=== PATIENT | female | born 1960 | race Caucasian/White ===

== ENCOUNTER 2016-12-27 11:34 | Emergency (ER) | payer MEDICARE ==
[~2016-12-27] VITALS: Ht 30.5 cm; Wt 68.0 kg
--- NOTE | 2016-12-27 12:14 | PHYS DOC ---
Past Medical History Past Medical History: Angina, Anxiety, Asthma, COPD, Depression, Diabetes-Type II, High Cholesterol, Hypertension Past Surgical History: Cholecystectomy, Hysterectomy, Other Additional Past Surgical Histo: carpal tunnel Alcohol Use: Occasionally Drug Use: None Adult General Chief Complaint Chief Complaint: MECHANICAL FALL HPI HPI Patient is a 56 year old F who presents with fall and head pain. Patient states she was walking out of the garage in the kitchen and fell backwards hitting her head. Patient complains of head, neck, back pain. Patient states she doesn't know what happened and doesn't know if she lost consciousness or not. Family is at bedside and states she's been falling more frequently. Patient states she has chronic right hip pain. Patient states she suffers depression. Patient denies any fevers. Patient denies any chest pain or shortness of breath. Patient denies any abdominal pain. Patient refused c- collar. Review of Systems Review of Systems GEN: Denies fevers, chills, sweats HEENT: Neck pain CV: Denies chest pain RESP: Denies shortness of air, cough GI: Denies n/v/d NEURO: Headache MSK: Denies weakness, joint pain/swelling BAck: Back pain Current Medications Current Medications Current Medications Medications (Trade) Dose Ordered Sig/Andria Start Time Stop Time Status Last Admin Dose Admin Fentanyl Citrate (Fentanyl 2ml Vial) 50 mcg 1X ONCE 12/27/16 12:30 12/27/16 12:31 DC 12/27/16 12:33 50 MCG Allergies Allergies Allergies Coded Allergies Type Severity Reaction Last Updated Verified Penicillins Allergy Intermediate hives 07/12/13 Yes Beef Containing Products Allergy Hives 07/12/13 Yes Uncoded Allergies Type Severity Reaction Last Updated Verified OATS Allergy Intermediate hives 07/12/13 Physical Exam Physical Exam GEN.: No apparent distress. Alert and oriented. HEENT: Head is normocephalic, atraumatic NECK: Supple. Positive tenderness palpation midline however the patient refuses c-collar LUNGS: CTAB. HEART: RRR, S1, S2 present. Peripheral pulses intact ABDOMEN: Soft, nontender. Positive bowel sounds. EXTREMITIES: Without any cyanosis. Positive tenderness palpation to the right hip NEUROLOGIC: Normal speech, normal tone PSYCHIATRIC: Normal affect, normal mood. SKIN: No ulcerations BACK: Positive tenderness palpation midline over the T and L-spine Current Patient Data Vital Signs Vital Signs Date Time Temp Pulse Resp B/P (MAP) Pulse Ox O2 Delivery O2 Flow Rate FiO2 12/27/16 12:30 76 20 115/56 (75) 97 12/27/16 11:38 98.1 Room Air 98.1 Lab Values Laboratory Tests Test 12/27/16 11:55 12/27/16 12:20 White Blood Count 7.0 x10^3/uL (4.0-11.0) Red Blood Count 4.43 x10^6/uL (3.50-5.40) Hemoglobin 12.9 g/dL (12.0-15.5) Hematocrit 38.7 % (36.0-47.0) Mean Corpuscular Volume 87 fL (79-100) Mean Corpuscular Hemoglobin 29 pg (25-35) Mean Corpuscular Hemoglobin Concent 33 g/dL (31-37) Red Cell Distribution Width 13.4 % (11.5-14.5) Platelet Count 195 x10^3/uL (140-400) Neutrophils (%) (Auto) 67 % (31-73) Lymphocytes (%) (Auto) 26 % (24-48) Monocytes (%) (Auto) 5 % (0-9) Eosinophils (%) (Auto) 2 % (0-3) Basophils (%) (Auto) 1 % (0-3) Neutrophils # (Auto) 4.7 x10^3uL (1.8-7.7) Lymphocytes # (Auto) 1.8 x10^3/uL (1.0-4.8) Monocytes # (Auto) 0.4 x10^3/uL (0.0-1.1) Eosinophils # (Auto) 0.1 x10^3/uL (0.0-0.7) Basophils # (Auto) 0.0 x10^3/uL (0.0-0.2) Sodium Level 140 mmol/L (136-145) Potassium Level 4.1 mmol/L (3.5-5.1) Chloride Level 104 mmol/L (98-107) Carbon Dioxide Level 27 mmol/L (21-32) Anion Gap 9 (6-14) Blood Urea Nitrogen 17 mg/dL (7-20) Creatinine 0.6 mg/dL (0.6-1.0) Estimated GFR (Cockcroft-Gault) 103.4 Glucose Level 106 mg/dL (70-99) H Calcium Level 8.8 mg/dL (8.5-10.1) Urine Collection Type Unknown Urine Color Yellow Urine Clarity Clear Urine pH 6.0 Urine Specific [place] 1.015 Urine Protein Negative mg/dL (NEG-TRACE) Urine Glucose (UA) Negative mg/dL (NEG) Urine Ketones (Stick) Negative mg/dL (NEG) Urine Blood Negative (NEG) Urine Nitrite Negative (NEG) Urine Bilirubin Negative (NEG) Urine Urobilinogen Dipstick 0.2 mg/dL (0.2 mg/dL) Urine Leukocyte Esterase Negative (NEG) Urine RBC 0 /HPF (0-2) Urine WBC 0 /HPF (0-4) Urine Bacteria 0 /HPF (0-FEW) Laboratory Tests 12/27/16 11:55 Laboratory Tests 12/27/16 11:55 EKG EKG [] Radiology/Procedures Radiology/Procedures CT scan of the head/C-spine/T-spine/L-spine/pelvis were negative for any acute fracture[] Course & Med Decision Making Course & Med Decision Making Pertinent Labs and Imaging studies reviewed. (See chart for details) ED course: Patient was seen and examined emergency room CBC, BMP, UA, EKG, CT scan of the head, C-spine, T-spine, L-spine, right hip were ordered 1404: Reevaluated the patient is feeling much better and is ready go home. Updated the patient on CT findings and need to follow-up with her PCP for pain management MDM: After reviewing the chart, CC/HPI/PMH, physical exam, [lab results], [ radiological results], I do not believe the patient has emergent medical condition or an acute traumatic injury warranting further workup and/or admission at this time. On reexamination the patient has improved and is ready go home. Discussed need to follow-up with PCP for further evaluation and management of her pain. Additional verbal discharge instructions were provided to the patient and that if symptoms get worse or any new symptoms arise that are worrisome to the patient she is to return to the emergency room immediately [] Dragon Disclaimer Dragon Disclaimer This electronic medical record was generated, in whole or in part, using a voice recognition dictation system. Departure Departure Impression: Primary Impression: Closed head injury Additional Impressions: Neck sprain Thoracic spine pain Lower back pain Right hip pain Disposition: 01 HOME, SELF-CARE Condition: IMPROVED Referrals: UNKNOWN PCP NAME (PCP) Patient Instructions: Fall Prevention and Home Safety Additional Instructions: Please follow up with your family physician in the next one to 2 days for pain management and further evaluation and return if symptoms increase Problem Qualifiers WILBERTO NAVARRO DO Dec 27, 2016 12:14
[2016-12-27 12:30] VITALS: BP 115/56
[2016-12-27] MEDS ORDERED: fentaNYL PF VIAL 100 MCG/2 ML VIAL IV ONE (12:30)
[2016-12-27 12:33] LABS: BILIRUBIN,URINE NEGATIVE (NEG); GLUCOSE,URINE NEGATIVE (NEG); NITRITE,URINE NEGATIVE (NEG); PROTEIN,URINE NEGATIVE (NEG-TRACE); UROBILINOGEN,URINE 0.2 mg/dL (0.2 mg/dL)
[2016-12-27 12:37] LABS: BASO % 1 % (0-3); EOS % 2 % (0-3); HEMATOCRIT 38.7 % (36.0-47.0); HEMOGLOBIN 12.9 g/dL (12.0-15.5); LYMPH # 1.8 x10^3/uL (1.0-4.8); LYMPH % 26 % (24-48); MEAN CORPUSCULAR HEMOGLOBIN 29 pg (25-35); MEAN CORPUSCULAR HGB CONC 33 g/dL (31-37); MEAN CORPUSCULAR VOLUME 87 fL (79-100); MONO % 5 % (0-9); NEUT % 67 % (31-73); PLATELET COUNT 195 x10^3/uL (140-400); RED BLOOD COUNT 4.43 x10^6/uL (3.50-5.40); RED CELL DISTRIBUTION WIDTH 13.4 % (11.5-14.5)
[2016-12-27 12:38] LABS: CALCIUM 8.8 mg/dL (8.5-10.1); CREATININE 0.6 mg/dL (0.6-1.0); GFR 103.4; POTASSIUM 4.1 mmol/L (3.5-5.1)
[2016-12-27 12:44] LABS: BACTERIA,URINE 0 /HPF (0-FEW); RBC,URINE 0 /HPF (0-2); WBC,URINE 0 /HPF (0-4)
--- NOTE | 2016-12-27 13:20 | EKG ---
[facility] [address] [place] [address] Test Date: 2016-12-27 Test Time: 12:24:18 Pat Name: LATIA JESSICA Department: Room: Gender: F Emergency Medicine Specialist: : [id number] Requested By: WILBERTO NAVARRO Order Number: [id number] Reading MD: Edilma Chan Measurements Intervals [place] Rate: 63 P: 29 CO: 128 QRS: 55 QRSD: 90 T: 42 QT: 434 QTc: 447 Interpretive Statements SINUS RHYTHM NORMAL ECG Electronically Signed On 12-31-2016 21:43:44 CDT by Edilma Chan
--- NOTE | 2016-12-27 13:40 | RAD ---
Examination: CT head and cervical spine. History: History of fall, headache pain, neck pain, back pain Comparison: None available CT head without contrast Procedure: Axial images are obtained of the head from the skull base through the vertex without IV contrast. Findings: The ventricles and sulci are normal for the patient's age. No mass-effect, intracranial mass, midline shift, hemorrhage or obvious acute infarction is identified. Basilar cisterns are patent. Bone windows demonstrate no significant calvarial abnormality. The visualized paranasal sinuses appear clear. Impression: 1. No acute intracranial process. PQRS Compliance Statement: One or more of the following individualized dose reduction techniques were utilized for this examination: 1. Automated exposure control 2. Adjustment of the mA and/or kV according to patient size 3. Use of iterative reconstruction technique CT cervical spine without contrast Technique: Noncontrast helical CT of the cervical spine was performed , sagittal, and coronal reconstructions were obtained. Findings: Alignment of the cervical spine appears anatomic. There is no evidence of acute fracture or acute malalignment. No prevertebral soft tissue swelling is identified. Mild intervertebral disc height loss identified at C3-C4, C5-C6 vertebral levels. The bilateral facets are well aligned. Visualized soft tissues of the neck demonstrate no significant abnormalities. Impression: 1. No acute fracture of the cervical spine. Correlate clinically.
--- NOTE | 2016-12-27 13:53 | RAD ---
Examination: CT thoracic and lumbar spine and the pelvis without contrast History: History of fall, pain Comparison: None available Technique: Axial CT images of the thoracic, lumbar spine and pelvis were performed without contrast. Coronal and sagittal reformats are performed. PQRS Compliance Statement: One or more of the following individualized dose reduction techniques were utilized for this examination: 1. Automated exposure control 2. Adjustment of the mA and/or kV according to patient size 3. Use of iterative reconstruction technique Findings: The vertebral body heights are maintained. No evidence of listhesis. Mild multilevel degenerative changes identified in the thoracolumbar spine. There is no obvious acute fracture visualized. The bilateral femoral heads are within the acetabula. Small 1.2 cm nodule identified in the left adrenal gland measuring fat density likely lipid rich adrenal adenoma. Mild degenerative changes identified in the bilateral hip joints Impression: No acute osseous findings.
== END 2016-12-27 14:05 | disposition home or self-care (01) ==
LOC: ER 11:34
DX: S13.9XXA Sprain of joints and ligaments of unspecified parts of neck, initial encounter (principal); S09.90XA Unspecified injury of head, initial encounter; M54.5 Low back pain; M54.6 Pain in thoracic spine; M25.551 Pain in right hip; E11.9 Type 2 diabetes mellitus without complications; E78.00 Pure hypercholesterolemia, unspecified; J44.9 Chronic obstructive pulmonary disease, unspecified; I10 Essential (primary) hypertension; Z90.49 Acquired absence of other specified parts of digestive tract; Z90.710 Acquired absence of both cervix and uterus; Z88.0 Allergy status to penicillin; Z91.018 Allergy to other foods; W18.09XA Striking against other object with subsequent fall, initial encounter; Y93.01 Activity, walking, marching and hiking; Y99.8 Other external cause status; Y92.090 Kitchen in other non-institutional residence as the place of occurrence of the external cause
CPT/HCPCS: 36415; 70450; 72125; 72128; 72131; 72192; 80048; 81001; 85025; 93005; 96374; 99285; J3010

== ENCOUNTER → 2017-02-04 | Outpatient (CLI) | payer MEDICARE ==
--- NOTE | 2017-02-04 09:21 | RAD ---
Indication mediastinal adenopathy. Noncontrast images through the chest were obtained. The examination is slightly limited. The examination evaluating for adenopathy is slightly limited in that no IV contrast was administered. No prior imaging of the chest is available. Mild enlargement of the left adrenal gland is noted. Hounsfield unit numbers are negative indicative of a benign adenoma. An acute or definite significant finding in the upper abdomen is not seen. The thoracic aorta appears grossly normal. There is some mild mediastinal adenopathy. There are calcified right hilar lymph nodes. Definite pathologic mediastinal or hilar adenopathy is not seen. There are occasional calcified granulomas in both lungs. Acute parenchymal infiltrate in either lung is not seen and there is no dominant soft tissue mass. IMPRESSION:: No acute finding seen in the chest. No definite pathologic hilar or mediastinal adenopathy. PQRS Compliance Statement: One or more of the following individualized dose reduction techniques were utilized for this examination: 1. Automated exposure control 2. Adjustment of the mA and/or kV according to patient size 3. Use of iterative reconstruction technique
== END | disposition home or self-care (01) ==
LOC: CT 08:23
PROVIDERS: ATTEND Internal Medicine Pulmonary Disease
DX: R59.0 Localized enlarged lymph nodes (principal)
CPT/HCPCS: 71250

== ENCOUNTER → 2018-02-09 | Outpatient (CLI) | payer MEDICARE ==
--- NOTE | 2018-02-09 15:28 | RAD ---
Examination: CT chest without contrast HISTORY: History of smoking, cough COMPARISON: 02/04/2017 TECHNIQUE: Axial CT images of the chest were performed without contrast. Coronal and sagittal reformats are performed Exposure: One or more of the following individualized dose reduction techniques were utilized for this examination: 1. Automated exposure control 2. Adjustment of the mA and/or kV according to patient size 3. Use of iterative reconstruction technique FINDINGS: The visualized thyroid gland grossly appears unremarkable. The central airways are patent. The heart size grossly appears unremarkable. Few calcified mediastinal lymph nodes identified. Few calcified right hilar lymph nodes identified. There is a 6 mm nodule identified in the left lower lobe of the lung best visualized on series 2 image 28. Few scattered bilateral lung granulomas identified. No evidence of pleural effusion or pneumothorax. Minimal bibasilar lung atelectasis. The visualized noncontrasted liver, spleen, right adrenal grossly appears unremarkable. There is a nodule identified left adrenal gland measuring 1.2 cm and measuring -1 Hounsfield units likely lipid rich adrenal adenoma similar to prior exam. Cholecystectomy changes identified. Mild degenerative changes thoracic spine. IMPRESSION: 1. 6 mm nodule identified in the left lower lobe of the lung. Follow-up CT is recommended in 6-12 months per Fleischner Society guidelines. 2. Unchanged left adrenal lipid rich adenoma. Electronically signed by: Martinez Johnson MD (02/09/2018 3:25 PM) [id number]
== END | disposition home or self-care (01) ==
LOC: CT 13:57
PROVIDERS: ATTEND Internal Medicine Pulmonary Disease
DX: J98.11 Atelectasis (principal); E34.8 Other specified endocrine disorders; F17.200 Nicotine dependence, unspecified, uncomplicated; J84.10 Pulmonary fibrosis, unspecified; R91.1 Solitary pulmonary nodule; Z90.49 Acquired absence of other specified parts of digestive tract
CPT/HCPCS: 71250

== ENCOUNTER 2018-08-08 17:07 | Emergency (ER) | payer MEDICARE ==
[~2018-08-08] VITALS: Ht 154.9 cm; Wt 72.6 kg
[2018-08-08 17:35] VITALS: BP 121/99
[2018-08-08] MEDS ORDERED: methylPREDNISolone SOD SUCC PF 125 MG/2 ML VIAL. IV ONE (18:00)
[2018-08-08] MEDS ORDERED: IPRATRPIUM/ALBUTEROL 0.5/2.5MG 3 ML NEBU. NEB ONE (18:00)
[2018-08-08 18:11] LABS: BASO # 0.1 x10^3/uL (0.0-0.2); BASO % 1 % (0-3); EOS # 0.2 x10^3/uL (0.0-0.7); EOS % 2 % (0-3); HEMATOCRIT 38.9 % (36.0-47.0); HEMOGLOBIN 12.9 g/dL (12.0-15.5); LYMPH # 2.4 x10^3/uL (1.0-4.8); LYMPH % 28 % (24-48); MEAN CORPUSCULAR HEMOGLOBIN 29 pg (25-35); MEAN CORPUSCULAR HGB CONC 33 g/dL (31-37); MEAN CORPUSCULAR VOLUME 88 fL (79-100); MONO # 0.5 x10^3/uL (0.0-1.1); MONO % 5 % (0-9); NEUT # 5.5 x10^3uL (1.8-7.7); NEUT % 63 % (31-73); PLATELET COUNT 223 x10^3/uL (140-400); RED BLOOD COUNT 4.43 x10^6/uL (3.50-5.40); RED CELL DISTRIBUTION WIDTH 13.2 % (11.5-14.5); WHITE BLOOD COUNT 8.7 x10^3/uL (4.0-11.0)
--- NOTE | 2018-08-08 18:19 | RAD ---
CT head without contrast: Reason for examination: Headache since Tuesday. Comparison is made to previous study dated 12/27/2016. Axial images were obtained through the brain. No contrast was administered. Exposure: One or more of the following individualized dose reduction techniques were utilized for this examination: 1. Automated exposure control 2. Adjustment of the mA and/or kV according to patient size 3. Use of iterative reconstruction technique. Ventricular systems are symmetric and not dilated. No midline shift is seen. There is no evidence of intracranial hemorrhage, infarct, mass or edema. No abnormalities are seen at the orbits. The paranasal sinuses and mastoid air cells are clear. No acute skull abnormality is seen. IMPRESSION: No acute intracranial abnormality evident. Chest AP portable at 1743: Reason for examination: Cough. The heart size is normal. Mediastinum is unremarkable. There is a small calcified granuloma at the mid right lung field. No congestion, infiltrates or pleural effusions are seen. No acute bony abnormalities are seen. IMPRESSION: No acute cardiopulmonary disease. Electronically signed by: Berenice Salas MD (08/08/2018 6:17 PM) [facility]
--- NOTE | 2018-08-08 18:24 | PHYS DOC ---
Past Medical History Past Medical History: Angina, Anxiety, Asthma, COPD, Depression, Diabetes-Type II, High Cholesterol, Hypertension Past Surgical History: Cholecystectomy, Hysterectomy, Other Additional Past Surgical Histo: carpal tunnel Alcohol Use: Occasionally Drug Use: None Adult General Chief Complaint Chief Complaint: HEADACHE HPI HPI Patient is a 57 year old female with a history of COPD presents to the ED complaining of cough 3 days. States that she's been having a dry cough. Patient is a smoker. Associated symptoms include headache, congestion and subjective fevers. Sick contacts with similar symptoms. Denies worst headache of life, chest pain, shortness of breath, lower leg swelling, calf pain, abdominal pain, nausea/vomiting, dizziness, vision changes, rash. Review of Systems Review of Systems Constitutional: Complains of subjective fever. Denies chills [] Eyes: Denies change in visual acuity, redness, or eye pain [] HENT: Complains of congestion and sore throat [] Respiratory: Complains of cough. Denies shortness of breath [] Cardiovascular: No additional information not addressed in HPI [] GI: Denies abdominal pain, nausea, vomiting, bloody stools or diarrhea [] : Denies dysuria or hematuria [] Musculoskeletal: Denies back pain or joint pain [] Integument: Denies rash or skin lesions [] Neurologic: Denies headache, focal weakness or sensory changes [] All other systems were reviewed and found to be within normal limits, except as documented in this note. Current Medications Current Medications Current Medications Medications (Trade) Dose Ordered Sig/Andria Start Time Stop Time Status Last Admin Dose Admin Albuterol/ Ipratropium (Duoneb) 3 ml 1X ONCE 08/08/18 18:00 08/08/18 18:01 DC 08/08/18 18:29 3 ML Fentanyl Citrate (Fentanyl 2ml Vial) 50 mcg 1X ONCE 08/08/18 18:45 08/08/18 18:46 DC 08/08/18 18:46 50 MCG Methylprednisolone Sodium Succinate (SOLU-Medrol 125MG VIAL) 125 mg 1X ONCE 08/08/18 18:00 08/08/18 18:01 DC 08/08/18 18:44 125 MG Ondansetron HCl (Zofran) 4 mg 1X ONCE 08/08/18 18:45 08/08/18 18:46 DC 08/08/18 18:45 4 MG Allergies Allergies Allergies Coded Allergies Type Severity Reaction Last Updated Verified Penicillins Allergy Intermediate hives 07/12/13 Yes erythromycin base Allergy Intermediate rash 08/08/18 Yes gabapentin Allergy Intermediate rash 08/08/18 Yes tetracycline Allergy Intermediate rash 08/08/18 Yes vancomycin Allergy Intermediate rash 08/08/18 Yes Beef Containing Products Allergy Unknown Hives 01/27/17 Yes Uncoded Allergies Type Severity Reaction Last Updated Verified OATS Allergy Intermediate hives 07/12/13 Physical Exam Physical Exam Constitutional: Well developed, well nourished, no acute distress, non-toxic appearance. [] HENT: Normocephalic, atraumatic, bilateral external ears normal, oropharynx moist, no oral exudates, nose normal. [] Eyes: PERRLA, EOMI, conjunctiva normal, no discharge. [] Neck: Normal range of motion, no tenderness, supple, no stridor. [] Cardiovascular:Heart rate regular rhythm, no murmur [] Lungs & Thorax: mild wheezing bilaterally. Dry cough. [] Abdomen: Bowel sounds normal, soft, no tenderness, no masses, no pulsatile masses. [] Skin: Warm, dry, no erythema, no rash. [] Back: No tenderness, no CVA tenderness. [] Extremities: No tenderness, no cyanosis, no clubbing, ROM intact, no edema. [] Neurologic: Alert and oriented X 3, normal motor function, normal sensory function, no focal deficits noted. [] Psychologic: Affect normal, judgement normal, mood normal. [] Current Patient Data Vital Signs Vital Signs Date Time Temp Pulse Resp B/P (MAP) Pulse Ox O2 Delivery O2 Flow Rate FiO2 08/08/18 18:46 18 94 Room Air 08/08/18 17:35 98.7 83 121/99 (106) 98.7 Lab Values Laboratory Tests Test 08/08/18 18:00 08/08/18 18:45 White Blood Count 8.7 x10^3/uL (4.0-11.0) Red Blood Count 4.43 x10^6/uL (3.50-5.40) Hemoglobin 12.9 g/dL (12.0-15.5) Hematocrit 38.9 % (36.0-47.0) Mean Corpuscular Volume 88 fL (79-100) Mean Corpuscular Hemoglobin 29 pg (25-35) Mean Corpuscular Hemoglobin Concent 33 g/dL (31-37) Red Cell Distribution Width 13.2 % (11.5-14.5) Platelet Count 223 x10^3/uL (140-400) Neutrophils (%) (Auto) 63 % (31-73) Lymphocytes (%) (Auto) 28 % (24-48) Monocytes (%) (Auto) 5 % (0-9) Eosinophils (%) (Auto) 2 % (0-3) Basophils (%) (Auto) 1 % (0-3) Neutrophils # (Auto) 5.5 x10^3uL (1.8-7.7) Lymphocytes # (Auto) 2.4 x10^3/uL (1.0-4.8) Monocytes # (Auto) 0.5 x10^3/uL (0.0-1.1) Eosinophils # (Auto) 0.2 x10^3/uL (0.0-0.7) Basophils # (Auto) 0.1 x10^3/uL (0.0-0.2) Sodium Level 139 mmol/L (136-145) Potassium Level 3.9 mmol/L (3.5-5.1) Chloride Level 104 mmol/L (98-107) Carbon Dioxide Level 27 mmol/L (21-32) Anion Gap 8 (6-14) Blood Urea Nitrogen 17 mg/dL (7-20) Creatinine 0.7 mg/dL (0.6-1.0) Estimated GFR (Cockcroft-Gault) 86.2 BUN/Creatinine Ratio 24 (6-20) H Glucose Level 100 mg/dL (70-99) H Calcium Level 9.0 mg/dL (8.5-10.1) Total Bilirubin 0.2 mg/dL (0.2-1.0) Aspartate Amino Transferase (AST) 14 U/L (15-37) L Alanine Aminotransferase (ALT) 27 U/L (14-59) Alkaline Phosphatase 89 U/L (46-116) Total Protein 6.9 g/dL (6.4-8.2) Albumin 3.5 g/dL (3.4-5.0) Albumin/Globulin Ratio 1.0 (1.0-1.7) Laboratory Tests 08/08/18 18:00 Laboratory Tests 08/08/18 18:45 EKG EKG [] Radiology/Procedures Radiology/Procedures [] Course & Med Decision Making Course & Med Decision Making Pertinent Labs and Imaging studies reviewed. (See chart for details) []Discussed lab and imaging findings with patient. Patient's headache improved in the ED. States she is feeling much better. No focal neuro deficits. Patient on re-examination is not tachypneic, tachycardic or complaining of any symptoms. Discussed symptomatic treatment, [id number] medications and hydration. Discussed follow-up with PCP this week. Provided contact information/ education. Discussed reasons to return to the ED. Patient understands and agrees with plan. Dragon Disclaimer Dragon Disclaimer This electronic medical record was generated, in whole or in part, using a voice recognition dictation system. Departure Departure Impression: Primary Impression: Acute bronchitis Additional Impression: Headache Disposition: 01 HOME, SELF-CARE Condition: IMPROVED Referrals: UNKNOWN PCP NAME (PCP) PRIMITIVO ARCHER MD Patient Instructions: Acute Bronchitis, Headache, FAQs Scripts Guaifenesin/Codeine Phosphate (CHERATUSSIN AC SYRUP) 118 Ml Liquid 5 ML PO PRN Q6HRS, #120 ML Prov: YOON MON 08/08/18 Problem Qualifiers YOON MON Aug 08, 2018 18:24
[2018-08-08] MEDS ORDERED: ONDANSETRON PF 4 MG/2 ML VIAL. IV ONE (18:45)
[2018-08-08] MEDS ORDERED: fentaNYL PF VIAL 100 MCG/2 ML VIAL IV ONE (18:45)
[2018-08-08 19:01] LABS: CREATININE 0.7 mg/dL (0.6-1.0); GFR 86.2; POTASSIUM 3.9 mmol/L (3.5-5.1)
[2018-08-08 19:11] LABS: ALBUMIN 3.5 g/dL (3.4-5.0); TOTAL BILIRUBIN 0.2 mg/dL (0.2-1.0); TOTAL PROTEIN 6.9 g/dL (6.4-8.2)
[2018-08-08] MEDS ORDERED: GUAI118L20 PO (19:42)
== END 2018-08-08 19:55 | disposition home or self-care (01) ==
LOC: ER 17:07
DX: J20.9 Acute bronchitis, unspecified (principal); R51 Headache; F41.9 Anxiety disorder, unspecified; I10 Essential (primary) hypertension; J44.9 Chronic obstructive pulmonary disease, unspecified; F32.9 Major depressive disorder, single episode, unspecified; E11.9 Type 2 diabetes mellitus without complications; E78.00 Pure hypercholesterolemia, unspecified; Z90.49 Acquired absence of other specified parts of digestive tract; Z90.710 Acquired absence of both cervix and uterus; Z88.0 Allergy status to penicillin; Z88.1 Allergy status to other antibiotic agents; Z91.018 Allergy to other foods; Z88.8 Allergy status to other drugs, medicaments and biological substances
CPT/HCPCS: 36415; 70450; 71045; 80053; 85025; 94640; 96374; 96375; 99285; J2405; J2930; J3010; J7620

== ENCOUNTER → 2018-08-28 | Outpatient (CLI) | payer MEDICARE ==
[2018-08-08 17:35] VITALS: BP 121/99
[~2018-08-28] MED LIST: BUTA1CAP31 PO; GUAI118L20 PO
--- NOTE | 2018-08-28 12:40 | RAD ---
CT of the chest without contrast, 08/28/2018: HISTORY: Follow-up nodule Noncontrast scans were obtained as requested and compared to a study from 02/09/2018. There is calcific plaquing of the thoracic aorta without evidence of aneurysm. There are calcified mediastinal and right hilar lymph nodes compatible with old granulomatous disease. No noncalcified mediastinal adenopathy is evident. There is no evidence of pleural fluid. There are calcified granulomata in the lungs. No pulmonary mass or significant nodularity is evident. There is fissural thickening on the right, likely due to scarring. There are minimal nonspecific groundglass opacities in the lungs. There is mild mosaic attenuation in the lung bases bilaterally. Mild scattered degenerative changes are present in the spine. IMPRESSION: 1. Old healed granulomatous disease in the chest. 2. Mild pleural-parenchymal scarring. 3. Mild mosaic attenuation the lung bases which can be due to a variety of causes including small airway disease, emphysema with air trapping or chronic pulmonary embolic disease. PQRS Compliance Statement: One or more of the following individualized dose reduction techniques were utilized for this examination: 1. Automated exposure control 2. Adjustment of the mA and/or kV according to patient size 3. Use of iterative reconstruction technique Electronically signed by: Gerber Sullivan MD (08/28/2018 12:37 PM) [facility]
== END | disposition home or self-care (01) ==
LOC: CT 09:53
PROVIDERS: ATTEND Internal Medicine Pulmonary Disease
DX: R91.8 Other nonspecific abnormal finding of lung field (principal); J98.4 Other disorders of lung; J98.59 Other diseases of mediastinum, not elsewhere classified
CPT/HCPCS: 71250

== ENCOUNTER 2018-09-02 15:42 | Emergency (ER) | payer MEDICARE ==
[~2018-09-02] VITALS: Ht 154.9 cm; Wt 71.7 kg
[~2018-09-02 15:42] MED LIST changes: -BUTA1CAP31 PO
[2018-09-02 16:24] LABS: BILIRUBIN,URINE NEGATIVE (NEG); CLARITY,URINE CLEAR; COLOR,URINE YELLOW; NITRITE,URINE NEGATIVE (NEG); PROTEIN,URINE NEGATIVE (NEG-TRACE); UROBILINOGEN,URINE 0.2 mg/dL (0.2 mg/dL)
[2018-09-02 16:28] LABS: BASO # 0.1 x10^3/uL (0.0-0.2); BASO % 1 % (0-3); EOS # 0.2 x10^3/uL (0.0-0.7); EOS % 3 % (0-3); HEMATOCRIT 40.3 % (36.0-47.0); HEMOGLOBIN 13.4 g/dL (12.0-15.5); LYMPH % 29 % (24-48); MEAN CORPUSCULAR HEMOGLOBIN 29 pg (25-35); MEAN CORPUSCULAR HGB CONC 33 g/dL (31-37); MEAN CORPUSCULAR VOLUME 88 fL (79-100); MONO # 0.4 x10^3/uL (0.0-1.1); MONO % 6 % (0-9); NEUT # 4.2 x10^3uL (1.8-7.7); NEUT % 62 % (31-73); PLATELET COUNT 224 x10^3/uL (140-400); RED BLOOD COUNT 4.58 x10^6/uL (3.50-5.40); RED CELL DISTRIBUTION WIDTH 13.4 % (11.5-14.5); WHITE BLOOD COUNT 6.8 x10^3/uL (4.0-11.0)
[2018-09-02] MEDS ORDERED: KETOROLAC 30 MG/ML VIAL. IV ONE (16:30)
[2018-09-02] MEDS ORDERED: diphenhydrAMINE 50 MG/ML VIAL IVP ONE (16:30)
[2018-09-02] MEDS ORDERED: IV NORMAL SALINE 1000ML BAG 1,000 ML IV ONE (16:30)
[2018-09-02 16:34] LABS: AMPHETAMINE/METHAMPHETAMINE NEG (NEG); BARBITURATES NEG (NEG); BENZODIAZEPINES POS (NEG); CANNABINOIDS NEG (NEG); COCAINE NEG (NEG); METHADONE NEG (NEG); OPIATES NEG (NEG); PHENCYCLIDINE NEG (NEG)
[2018-09-02 16:38] LABS: SQUAMOUS EPITHELIAL CELL,UR MOD /LPF
[2018-09-02 16:39] LABS: AMORPHOUS SEDIMENT,UR PRESENT /HPF; BACTERIA,URINE FEW /HPF (0-FEW)
[2018-09-02 16:40] LABS: CALCIUM 8.9 mg/dL (8.5-10.1); CREATININE 0.7 mg/dL (0.6-1.0); GFR 86.2; POTASSIUM 3.9 mmol/L (3.5-5.1)
--- NOTE | 2018-09-02 16:46 | PHYS DOC ---
Past Medical History Past Medical History: Angina, Anxiety, Asthma, COPD, Depression, Diabetes-Type II, High Cholesterol, Hypertension Past Surgical History: Cholecystectomy, Hysterectomy, Other Additional Past Surgical Histo: BILATERAL CARPAL TUNNEL Additional Information: 1/2 PACK/DAY Alcohol Use: Occasionally Drug Use: None Adult General Chief Complaint Chief Complaint: WEAKNESS/GENERALIZED HPI HPI Patient is a 57 year old female who was in by EMS because of generalized weakness and headache. Patient states she has had left side headache since she woke up this morning as an aching pain without nausea or photophobia and rated her pain 8/10. Patient states she had episodes of headache previously but today was different than her usual. Patient denies fever and chills, neck pain, focal neuro deficit. Patient states she didn't take any pain medication including o [id number] medicine. Patient also complaining of generalized weakness few episode of left-sided chest pain last 2 days that last for a few seconds or minutes without shortness of breath, dizziness, palpitation. Review of Systems Review of Systems Constitutional: Denies fever or chills [] Eyes: Denies change in visual acuity, redness, or eye pain [] HENT: Denies nasal congestion or sore throat [] Respiratory: Denies cough or shortness of breath [] Cardiovascular: No additional information not addressed in HPI [] GI: Denies abdominal pain, nausea, vomiting, bloody stools or diarrhea [] : Denies dysuria or hematuria [] Musculoskeletal: Denies back pain or joint pain [] Integument: Denies rash or skin lesions [] Neurologic: Reports generalized weakness and headache, denies focal weakness or sensory changes [] Endocrine: Denies polyuria or polydipsia [] All other systems were reviewed and found to be within normal limits, except as documented in this note. Current Medications Current Medications Current Medications Medications (Trade) Dose Ordered Sig/Andria Start Time Stop Time Status Last Admin Dose Admin Acetaminophen/ Butalbital/ Caffeine (Fioricet) 1 tab PRN Q6HRS PRN 09/02/18 17:30 Diphenhydramine HCl (Benadryl) 50 mg 1X ONCE 09/02/18 16:30 09/02/18 16:31 DC 09/02/18 16:30 50 MG Ketorolac Tromethamine (Toradol 30mg Vial) 30 mg 1X ONCE 09/02/18 16:30 09/02/18 16:31 DC 09/02/18 16:30 30 MG Sodium Chloride 1,000 ml @ 1,000 mls/hr 1X ONCE 09/02/18 16:30 09/02/18 17:29 DC 09/02/18 16:29 1,000 MLS/HR Allergies Allergies Allergies Coded Allergies Type Severity Reaction Last Updated Verified Penicillins Allergy Intermediate hives 07/12/13 Yes erythromycin base Allergy Intermediate rash 08/08/18 Yes gabapentin Allergy Intermediate rash 08/08/18 Yes tetracycline Allergy Intermediate rash 08/08/18 Yes vancomycin Allergy Intermediate rash 08/08/18 Yes Beef Containing Products Allergy Unknown Hives 01/27/17 Yes Uncoded Allergies Type Severity Reaction Last Updated Verified OATS Allergy Intermediate hives 07/12/13 Physical Exam Physical Exam Constitutional: Well developed, well nourished, mild distress, non-toxic appearance. [] HENT: Normocephalic, atraumatic, bilateral external ears normal, oropharynx moist, no oral exudates, nose normal. [] Eyes: PERRLA, EOMI, conjunctiva normal, no discharge. [] Neck: Normal range of motion, no tenderness, supple, no stridor. [] Cardiovascular:Heart rate regular rhythm, no murmur [] Lungs & Thorax: Bilateral breath sounds clear to auscultation [] Abdomen: Bowel sounds normal, soft, no tenderness, no masses, no pulsatile masses. [] Skin: Warm, dry, no erythema, no rash. [] Back: No tenderness, no CVA tenderness. [] Extremities: No tenderness, no cyanosis, no clubbing, ROM intact, no edema. [] Neurologic: Alert and oriented X 3, normal motor function, normal sensory function, no focal deficits noted. [] Psychologic: Affect anxious, judgement normal, mood normal. [] Current Patient Data Vital Signs Vital Signs Date Time Temp Pulse Resp B/P (MAP) Pulse Ox O2 Delivery O2 Flow Rate FiO2 09/02/18 15:46 98.1 80 18 145/78 (100) 98 Room Air 98.1 Lab Values Laboratory Tests Test 09/02/18 15:50 09/02/18 16:03 White Blood Count 6.8 x10^3/uL (4.0-11.0) Red Blood Count 4.58 x10^6/uL (3.50-5.40) Hemoglobin 13.4 g/dL (12.0-15.5) Hematocrit 40.3 % (36.0-47.0) Mean Corpuscular Volume 88 fL (79-100) Mean Corpuscular Hemoglobin 29 pg (25-35) Mean Corpuscular Hemoglobin Concent 33 g/dL (31-37) Red Cell Distribution Width 13.4 % (11.5-14.5) Platelet Count 224 x10^3/uL (140-400) Neutrophils (%) (Auto) 62 % (31-73) Lymphocytes (%) (Auto) 29 % (24-48) Monocytes (%) (Auto) 6 % (0-9) Eosinophils (%) (Auto) 3 % (0-3) Basophils (%) (Auto) 1 % (0-3) Neutrophils # (Auto) 4.2 x10^3uL (1.8-7.7) Lymphocytes # (Auto) 2.0 x10^3/uL (1.0-4.8) Monocytes # (Auto) 0.4 x10^3/uL (0.0-1.1) Eosinophils # (Auto) 0.2 x10^3/uL (0.0-0.7) Basophils # (Auto) 0.1 x10^3/uL (0.0-0.2) Sodium Level 140 mmol/L (136-145) Potassium Level 3.9 mmol/L (3.5-5.1) Chloride Level 104 mmol/L (98-107) Carbon Dioxide Level 25 mmol/L (21-32) Anion Gap 11 (6-14) Blood Urea Nitrogen 12 mg/dL (7-20) Creatinine 0.7 mg/dL (0.6-1.0) Estimated GFR (Cockcroft-Gault) 86.2 BUN/Creatinine Ratio 17 (6-20) Glucose Level 166 mg/dL (70-99) H Calcium Level 8.9 mg/dL (8.5-10.1) Magnesium Level 1.9 mg/dL (1.8-2.4) Total Bilirubin 0.3 mg/dL (0.2-1.0) Aspartate Amino Transferase (AST) 14 U/L (15-37) L Alanine Aminotransferase (ALT) 30 U/L (14-59) Alkaline Phosphatase 92 U/L (46-116) Creatine Kinase 41 U/L (26-192) Troponin I Quantitative < 0.017 ng/mL (0.000-0.055) VI-Mnb-N-Type Natriuretic Peptide 29 pg/mL (0-124) Total Protein 6.6 g/dL (6.4-8.2) Albumin 3.5 g/dL (3.4-5.0) Albumin/Globulin Ratio 1.1 (1.0-1.7) Urine Collection Type Unknown Urine Color Yellow Urine Clarity Clear Urine pH 7.0 Urine Specific [place] 1.020 Urine Protein Negative mg/dL (NEG-TRACE) Urine Glucose (UA) 100 mg/dL (NEG) Urine Ketones (Stick) Negative mg/dL (NEG) Urine Blood Negative (NEG) Urine Nitrite Negative (NEG) Urine Bilirubin Negative (NEG) Urine Urobilinogen Dipstick 0.2 mg/dL (0.2 mg/dL) Urine Leukocyte Esterase Negative (NEG) Urine RBC 1-2 /HPF (0-2) Urine WBC 1-4 /HPF (0-4) Urine Squamous Epithelial Cells Mod /LPF Urine Amorphous Sediment Present /HPF Urine Bacteria Few /HPF (0-FEW) Urine Mucus Marked /LPF Urine Opiates Screen Neg (NEG) Urine Methadone Screen Neg (NEG) Urine Barbiturates Neg (NEG) Urine Phencyclidine Screen Neg (NEG) Urine Amphetamine/Methamphetamine Neg (NEG) Urine Benzodiazepines Screen Pos (NEG) Urine Cocaine Screen Neg (NEG) Urine Cannabinoids Screen Neg (NEG) Urine Ethyl Alcohol Neg (NEG) Laboratory Tests 09/02/18 15:50 Laboratory Tests 09/02/18 15:50 EKG EKG EKG Interpreted by me. EKG at 1054 showed normal sinus rhythm at rate of 82, normal WA and QT intervals, poor R-wave progress in anteroseptal leads, no acute ST and T-wave abnormalities. Radiology/Procedures Radiology/Procedures [facility] [address] [place], [place] [id number] IMAGING REPORT Signed PATIENT: LATIA JESSICA ACCOUNT: [id number] : 1960 LOCATION: ER AGE: 57 SEX: F EXAM STATUS: PRE ER ORD. PHYSICIAN: DARCI PASTRANA MD REASON: headache PROCEDURE: CT HEAD WO CONTRAST CT HEAD WO CONTRAST Date: 09/02/2018 4:08 PM Clinical Indication: Headache Comparison: CT head dated 08/08/2018. Technique: 5 mm axial tomographic images were obtained of the head without contrast. These were viewed on brain and bone windows. CT HEAD FINDINGS: The brain parenchyma is normal in attenuation. No intra- or extra-axial mass or fluid collection. No acute hemorrhage. The ventricles are normal in size, shape, and morphology. The christian-white matter junction is normal. The basilar cisterns are patent. The paranasal sinuses are clear. The orbits are normal. The globes are intact. The mastoid air cells are clear. No aggressive osseous lesion or fracture. IMPRESSION: No acute intracranial process. Electronically signed by: Alejandro Johnson MD (09/02/2018 5:03 PM) [facility] DICTATED and SIGNED BY: ALEJANDRO JOHNSON MD DATE: 09/02/18 9765 Course & Med Decision Making Course & Med Decision Making Pertinent Labs and Imaging studies reviewed. (See chart for details) Evaluation of patient in ER showed 57-year-old female patient brought in by EMS because of headache and generalized weakness. Patient had unremarkable physical exam and treated with IV fluid and Benadryl and Toradol and his pain dropped from 8 to 4 and asking for more pain medication. Patient states she was seen at [facility] for her headache. Patient was advised to follow up with her physician and continue her home medication. Plan to give Fioricet. Dragon Disclaimer Dragon Disclaimer This electronic medical record was generated, in whole or in part, using a voice recognition dictation system. Departure Departure Impression: Primary Impression: Headache Additional Impression: Generalized weakness Disposition: 01 HOME, SELF-CARE (at 1736) Condition: IMPROVED Referrals: UNKNOWN PCP NAME (PCP) Patient Instructions: General Headache Without Cause, Weakness Additional Instructions: Drink plenty of liquids Follow-up with your primary care physician in 3-5 days Return to ER if not getting better Scripts Butalbital/Aspirin/Caffeine (FIORINAL 50-325-40 MG CAPSULE) 1 Each Capsule 1 EACH PO QID PRN for HEADACHE, #10 CAP Prov: DARCI PASTRANA MD 09/02/18 Problem Qualifiers Primary Impression: Headache Headache type: unspecified Headache chronicity pattern: unspecified pattern Intractability: not intractable Qualified Codes: R51 - Headache DARCI PASTRANA MD September 02, 2018 16:45
[2018-09-02 16:47] LABS: ALBUMIN 3.5 g/dL (3.4-5.0); ALBUMIN/GLOBULIN RATIO 1.1 (1.0-1.7); MAGNESIUM 1.9 mg/dL (1.8-2.4); TOTAL BILIRUBIN 0.3 mg/dL (0.2-1.0); TOTAL PROTEIN 6.6 g/dL (6.4-8.2)
--- NOTE | 2018-09-02 17:07 | RAD ---
CT HEAD WO CONTRAST Date: 09/02/2018 4:08 PM Clinical Indication: Headache Comparison: CT head dated 08/08/2018. Technique: 5 mm axial tomographic images were obtained of the head without contrast. These were viewed on brain and bone windows. CT HEAD FINDINGS: The brain parenchyma is normal in attenuation. No intra- or extra-axial mass or fluid collection. No acute hemorrhage. The ventricles are normal in size, shape, and morphology. The christian-white matter junction is normal. The basilar cisterns are patent. The paranasal sinuses are clear. The orbits are normal. The globes are intact. The mastoid air cells are clear. No aggressive osseous lesion or fracture. IMPRESSION: No acute intracranial process. Electronically signed by: Alejandro Johnson MD (09/02/2018 5:03 PM) [facility]
[2018-09-02] MEDS ORDERED: BUTALB/APAP/CAFEIN 50/325/40MG TABLET. PO PRN (17:30)
[2018-09-02] MEDS ORDERED: BUTA1CAP31 PO (17:40)
[2018-09-02 17:45] VITALS: BP 122/65
--- NOTE | 2018-09-03 16:39 | EKG ---
[facility] [address] [place] [address] Test Date: 2018-09-02 Test Time: 15:54:57 Pat Name: LATIA JESSICA Department: Room: Gender: F Plumber Cub: : 1960 Requested By: DARCI PASTRANA Order Number: [id number] Reading MD: Kahlil Payan MD Measurements Intervals [place] Rate: 82 P: 59 RI: 170 QRS: 66 QRSD: 84 T: 50 QT: 378 QTc: 445 Interpretive Statements SINUS RHYTHM Electronically Signed On 09-28-2018 14:49:17 CDT by Kahlil Payan MD
== END 2018-09-02 18:35 | disposition home or self-care (01) ==
LOC: ER 15:42
DX: R51 Headache (principal); R53.1 Weakness; F41.9 Anxiety disorder, unspecified; J44.9 Chronic obstructive pulmonary disease, unspecified; F32.9 Major depressive disorder, single episode, unspecified; E11.9 Type 2 diabetes mellitus without complications; E78.00 Pure hypercholesterolemia, unspecified; I10 Essential (primary) hypertension; Z90.49 Acquired absence of other specified parts of digestive tract; Z90.710 Acquired absence of both cervix and uterus; F17.200 Nicotine dependence, unspecified, uncomplicated; Z88.0 Allergy status to penicillin; Z88.1 Allergy status to other antibiotic agents; Z88.8 Allergy status to other drugs, medicaments and biological substances; Z91.018 Allergy to other foods
CPT/HCPCS: 36415; 70450; 80053; 80307; 81001; 82550; 83735; 83880; 84484; 85025; 93005; 96374; 96375; 99285; J1200; J1885; J7030

== ENCOUNTER 2020-01-30 14:53 | Emergency (ER) | payer OTHER, MEDICARE ==
[~2020-01-30] VITALS: Ht 154.9 cm; Wt 73.0 kg
[~2020-01-30 14:53] MED LIST changes: +BUTA1CAP31 PO
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
[2020-01-30] MEDS ORDERED: NAPROXEN 500 MG TABLET PO STA (17:30)
[2020-01-30] MEDS ORDERED: CYCLOBENZAPRINE 10 MG TABLET. PO ONE (17:30)
[2020-01-30] MEDS ORDERED: NAPR-514 PO (17:36)
[2020-01-30] MEDS ORDERED: CYCL10TA2 PO (17:36)
[2020-01-30 17:50] VITALS: BP 129/66
== END 2020-01-30 17:55 | disposition home or self-care (01) ==
LOC: ER 14:53
DX: S16.1XXA Strain of muscle, fascia and tendon at neck level, initial encounter (principal); S70.02XA Contusion of left hip, initial encounter; M54.5 Low back pain; M50.322 Other cervical disc degeneration at C5-C6 level; J44.9 Chronic obstructive pulmonary disease, unspecified; E11.9 Type 2 diabetes mellitus without complications; E78.00 Pure hypercholesterolemia, unspecified; I10 Essential (primary) hypertension; F17.200 Nicotine dependence, unspecified, uncomplicated; Z90.49 Acquired absence of other specified parts of digestive tract; Z90.710 Acquired absence of both cervix and uterus; V49.49XA Driver injured in collision with other motor vehicles in traffic accident, initial encounter; Y92.488 Other paved roadways as the place of occurrence of the external cause; Y93.89 Activity, other specified; Y99.8 Other external cause status
CPT/HCPCS: 72100; 72125; 73502; 99284